=== PATIENT | male | born 1960 | race Caucasian/White ===

== ENCOUNTER 2017-09-23 12:57 | Emergency (ER) | payer BC ==
[~2017-09-23] VITALS: Ht 182.9 cm; Wt 94.8 kg
[~2017-09-23 12:57] MED LIST: ANAFRANIL25 MG ORAL; ATENOLOL100 MG ORAL; MULTIVITAMINS1 EAC2 ORAL; XARELTO10 MG ORAL
[2017-09-23] MEDS ORDERED: ATENOLOL50 MG ORAL (13:08)
[2017-09-23] MEDS ORDERED: ASPIRIN325 MG ORAL (13:08)
[2017-09-23] MEDS ORDERED: ZANTAC150 MG ORAL (13:08)
[2017-09-23 13:17] VITALS: BP 155/92
[2017-09-23] MEDS ORDERED: Carbamide Peroxide 6.5% Ot Sol 15ML RIGHT EAR STA (13:42)
[2017-09-23 13:56] VITALS: BP 146/65
[2017-09-23 14:00] VITALS: BP 143/82
[2017-09-23 14:09] LABS: BASOPHILS % (AUTO) 1.7 % (0.0-2.0); EOSINOPHILS % (AUTO) 2.5 % (0.0-3.0); HEMATOCRIT 47.8 % (42.0-52.0); HEMOGLOBIN 15.8 G/DL (14.2-18.0); LYMPHOCYTES % (AUTO) 33.2 % (20.0-45.0); MEAN CORPUSCULAR VOLUME 91 FL (80-99); NEUTROPHILS % (AUTO) 50.6 % (45.0-75.0); PLATELET COUNT 201 K/UL (150-450); RED BLOOD COUNT 5.23 M/UL (4.70-6.10); RED CELL DISTRIBUTION WIDTH 12.1 % (11.6-14.8); WHITE BLOOD COUNT 7.4 K/UL (4.8-10.8)
[2017-09-23 14:10] LABS: APPEARANCE,URINE CLEAR; BILIRUBIN, URINE NEGATIVE (NEGATIVE); COLOR,URINE PALE YELLOW; GLUCOSE, URINE (UA) NEGATIVE (NEGATIVE); KETONES,URINE NEGATIVE (NEGATIVE); LEUKOCYTE ESTERASE ,URINE NEGATIVE (NEGATIVE); NITRITE,URINE NEGATIVE (NEGATIVE); PH,URINE 6 (4.5-8.0); PROTEIN,URINE NEGATIVE (NEGATIVE); UROBILINOGEN,URINE NORMAL MG/DL (0.0-1.0)
[2017-09-23 14:36] LABS: ANION GAP 8 mmol/L (5-15); BLOOD UREA NITROGEN 14 mg/dL (7-18); CALCIUM 9.3 MG/DL (8.5-10.1); CARBON DIOXIDE 29 MMOL/L (21-32); CHLORIDE 102 MMOL/L (98-107); CREATININE 0.9 MG/DL (0.55-1.30); POTASSIUM 4.5 MMOL/L (3.5-5.1); SODIUM 139 MMOL/L (136-145)
--- NOTE | 2017-09-23 14:43 | Emergency Room Report ---
History of Present Illness General Chief Complaint: Dizziness Source: Patient Present Illness HPI The patient presents with10 - 14 days of increased weakness and feeling like he is about to pass out. He describes it as "dizziness" but denies having vertigo. They've been trying to clear out impacted wax of his right ear. In addition to that he recently traveled to [place] a week ago. He was feeling weak at that time and had headaches. He's had continued weakness ever since his return - some occipital discomfort. He's had dry mouth and some polyuria. At work today, he felt worse and felt he needed to go to ER. No unilateral weakness. He denies stress although how he feels makes him concerned. He rested and did not go skiing. The patient's on metoprolol. He takes his for palpitations. He had ablation for A fib and was transiently on Xarelto - not for years. He states he is "heart symptom conscious". Labs were performed last week. The nurse practitioner told him that his A1c was elevated and his blood sugar was also elevated. He had a maternal grandmother with diabetes. The patient denies chest pain or palpitations recently. His appetite has been adequate. He denies any stress. He does get anxious about how he is feeling. He was at work today and could barely get around. No NVD, dysuria, rashes. Facial asymmetry from breech and is chronic according to sig other. Denies chronic meds except for metoprolol and aspirin. Allergies: Coded Allergies: No Known Allergies (Unverified , 10/14/14) Patient History Past Medical History: see triage record Social History: Denies: smoking, alcohol use, drug use Social History Narrative marketing planner Reviewed Nursing Documentation: PMH: Agreed; PSxH: Agreed Nursing Documentation-PM Past Medical History: No History, Except For Hx Cardiac Problems: Yes - "IRREGULAR HEARTBEAT" Hx Cancer: No Hx Neurological Problems: No Review of Systems All Other Systems: negative except mentioned in HPI Physical Exam Vital Signs Date Time Temp Pulse Resp B/P (MAP) Pulse Ox O2 Delivery O2 Flow Rate FiO2 09/23/17 13:01 97.8 68 23 162/96 98 Room Air 97.9 Sp02 EP Interpretation: reviewed, normal General Appearance: well appearing, no apparent distress, GCS 15 Head: normocephalic Eyes: left eye other - slight laxity/asymmetry; bilateral eye normal inspection , bilateral eye PERRL, bilateral eye EOMI ENT: moist mucus membranes Neck: supple Respiratory: lungs clear, normal breath sounds Cardiovascular #1: regular rate, rhythm Cardiovascular #2: 2+ radial (R) Gastrointestinal: normal inspection, normal bowel sounds, non tender, no mass, non-distended Musculoskeletal: back normal, gait/station normal, normal range of motion Neurologic: alert, oriented x3, care rep III-XII nml as tested - see above, motor strength/tone normal, DTRs symmetric, sensory intact, cerebellar normal, normal gait, speech normal, other - facial assymmetry (state this is chronic) Psychiatric: anxious Skin: normal inspection, warm/dry Medical Decision Making Diagnostic Impression: Primary Impression: Weakness Additional Impressions: Borderline hyperglycemia Dizziness ER Course Patient presents with dizziness and dry mouth. Symptoms predate trip to altitude. Differential includes hyperglycemia, new-onset diabetes, diabetic ketoacidosis, rebound from altitude sickness, electrolyte imbalance, dehydration , thyroid abnormality, anemia, anxiety, vasculitis, arrhythmia, multiple sclerosis amongst others. Evaluation will be with EKG, chest x-ray and CT scan with labs. The patient will receive gentle IV hydration. Orthostatics will be checked. Patient is afebrile and denies pain. Normal neurologic exam (except for chronic asymmetry of face). Cerumen not explain symptoms. Not orthostatic. EKG without injury. Labs with glucose 126, rest normal. R ear wax cleared. Slight improvement with IV hydration. No ectopy or arrhythmia. No medical emergency at this time. Discussed observation at home vs in hospital. They are electing to be observed at home. Ativan dose given here. Patient stable for outpatient observation and treatment. Laboratory Tests Test 09/23/17 13:30 09/23/17 13:50 White Blood Count 7.4 K/UL (4.8-10.8) Red Blood Count 5.23 M/UL (4.70-6.10) Hemoglobin 15.8 G/DL (14.2-18.0) Hematocrit 47.8 % (42.0-52.0) Mean Corpuscular Volume 91 FL (80-99) Mean Corpuscular Hemoglobin 30.2 PG (27.0-31.0) Mean Corpuscular Hemoglobin Concent 33.0 G/DL (32.0-36.0) Red Cell Distribution Width 12.1 % (11.6-14.8) Platelet Count 201 K/UL (150-450) Mean Platelet Volume 9.5 FL (6.5-10.1) Neutrophils (%) (Auto) 50.6 % (45.0-75.0) Lymphocytes (%) (Auto) 33.2 % (20.0-45.0) Monocytes (%) (Auto) 12.0 % (1.0-10.0) H Eosinophils (%) (Auto) 2.5 % (0.0-3.0) Basophils (%) (Auto) 1.7 % (0.0-2.0) Erythrocyte Sedimentation Rate 9 MM/HR (0-20) Prothrombin Time 10.5 SEC (9.30-11.50) Prothrombin Time INR 1.0 (0.9-1.1) PTT 25 SEC (23-33) Sodium Level 139 MMOL/L (136-145) Potassium Level 4.5 MMOL/L (3.5-5.1) Chloride Level 102 MMOL/L (98-107) Carbon Dioxide Level 29 MMOL/L (21-32) Anion Gap 8 mmol/L (5-15) Blood Urea Nitrogen 14 mg/dL (7-18) Creatinine 0.9 MG/DL (0.55-1.30) Estimate Glomerular Filtration Rate > 60 mL/min (>60) Glucose Level 126 MG/DL (74-106) H Calcium Level 9.3 MG/DL (8.5-10.1) Total Bilirubin 0.6 MG/DL (0.2-1.0) Aspartate Amino Transferase (AST) 36 U/L (15-37) Alanine Aminotransferase (ALT) 75 U/L (12-78) Alkaline Phosphatase 58 U/L (46-116) Total Creatine Kinase 116 U/L (26-308) Troponin I 0.000 ng/mL (0.000-0.056) Pro-B-Type Natriuretic Peptide 59 pg/mL (0-125) Total Protein 7.8 G/DL (6.4-8.2) Albumin 4.1 G/DL (3.4-5.0) Globulin 3.7 g/dL Albumin/Globulin Ratio 1.1 (1.0-2.7) Thyroid Stimulating Hormone (TSH) 2.076 uiU/mL (0.358-3.740) Urine Color Pale yellow Urine Appearance Clear Urine pH 6 (4.5-8.0) Urine Specific [place] 1.010 (1.005-1.035) Urine Protein Negative (NEGATIVE) Urine Glucose (UA) Negative (NEGATIVE) Urine Ketones Negative (NEGATIVE) Urine Occult Blood Negative (NEGATIVE) Urine Nitrite Negative (NEGATIVE) Urine Bilirubin Negative (NEGATIVE) Urine Urobilinogen Normal MG/DL (0.0-1.0) Urine Leukocyte Esterase Negative (NEGATIVE) Urine Opiates Screen Negative (NEGATIVE) Urine Barbiturates Screen Negative (NEGATIVE) Phencyclidine (PCP) Screen Negative (NEGATIVE) Urine Amphetamines Screen Negative (NEGATIVE) Urine Benzodiazepines Screen Negative (NEGATIVE) Urine Cocaine Screen Negative (NEGATIVE) Urine Marijuana (THC) Screen Negative (NEGATIVE) EKG Diagnostic Results Rate: normal Rhythm: NSR ST Segments: no acute changes Rhythm Strip Diag. Results EP Interpretation: yes Rhythm: NSR, no PVC's, no ectopy Chest X-Ray Diagnostic Results Chest X-Ray Diagnostic Results : Chest X-Ray Ordered: Yes # of Views/Limited/Complete: 1 View Indication: Other EP Interpretation: Yes Interpretation: no consolidation, no effusion, no pneumothorax, no acute cardiopulmonary disease Impression: No acute disease Electronically Signed by: Augusto Choudhury MD CT/MRI/US Diagnostic Results CT/MRI/US Diagnostic Results : Imaging Test Ordered: head Impression occipital hygroma noted by me. Other minute calcifications noted by me, but read as normal by radiologist. Last Vital Signs Date Time Temp Pulse Resp B/P (MAP) Pulse Ox O2 Delivery O2 Flow Rate FiO2 09/23/17 16:38 88 20 138/80 98 Room Air 09/23/17 13:17 98.3 98.3 Status: improved Disposition: HOME, SELF-CARE Condition: Improved Scripts Lorazepam* (ATIVAN*) 0.5 Mg Tablet 0.5 MG ORAL THREE TIMES A DAY PRN for dizziness, #4 TAB Prov: Augusto Choudhury M.D. 09/23/17 Augusto Choudhury M.D. Sep 23, 2017 14:43
[2017-09-23 14:48] LABS: ALANINE AMINOTRANSFERASE 75 U/L (12-78); ALBUMIN 4.1 G/DL (3.4-5.0); ALBUMIN/GLOBULIN RATIO 1.1 (1.0-2.7); ALKALINE PHOSPHATASE 58 U/L (46-116); ASPARTATE AMINO TRANSFERASE 36 U/L (15-37); BILIRUBIN,TOTAL 0.6 MG/DL (0.2-1.0); CREATINE KINASE 116 U/L (26-308)
[2017-09-23 15:07] VITALS: BP 130/79
[2017-09-23] MEDS ORDERED: ATIVAN0.5 MG ORAL (16:22)
[2017-09-23] MEDS ORDERED: LORazepam 0.5mg tab ORAL ONE (16:30)
[2017-09-23 16:38] VITALS: BP 138/80
--- NOTE | 2017-09-24 10:11 | Diagnostic Imaging Report ---
Indication: Dizziness Technique: Continuous helical CT scanning of the head was performed utilizing automated exposure control without intravenous contrast material. Axial and coronal reconstructions were obtained. Comparison: None CT dose: Total DLP 1492 mGycm; CTDI vol 70.4 mGy Findings: There is no acute intracranial hemorrhage, mass effect or cortical edema. The ventricles, cisterns and sulci are within normal limits for age. The posterior fossa and fourth ventricle are unremarkable. Sellar and suprasellar regions are grossly unremarkable. Visualized mastoid air cells and paranasal sinuses are unremarkable. No focal lesions of the bony calvarium or soft tissues of the scalp are seen. Impression: No evidence of acute intracranial hemorrhage, mass effect or cortical edema. MRI may be obtained for more sensitive evaluation as clinically indicated. The CT scanner at [facility] is accredited by the [employer] and the scans are performed using protocols designed to limit radiation exposure to as low as reasonably achievable to attain images of sufficient resolution adequate for diagnostic evaluation.
--- NOTE | 2017-09-24 10:12 | Diagnostic Imaging Report ---
Indication: Chest pain Technique: XRAY Chest 1v Comparison: None Findings: Cardiomediastinal silhouette is within normal limits. There is no consolidation or pleural effusion. Degenerative changes of the spine are seen. Impression: No acute cardiopulmonary disease.
--- NOTE | 2017-09-25 19:19 | Cardiology Report ---
APPROVED REPORT EKG Measurement Heart [id number] Normal sinus rhythm Left axis deviation Abnormal ECG
== END 2017-09-23 16:39 | disposition home or self-care (01) ==
LOC: EMR 14:00
DX: R42 Dizziness and giddiness (principal); R53.1 Weakness; R73.03 Prediabetes; D18.1 Lymphangioma, any site; R07.9 Chest pain, unspecified
CPT/HCPCS: 36415; 70450; 71045; 80053; 80307; 81003; 82550; 83880; 84443; 84484; 85025; 85610; 85651; 85730; 93005; 96361; 96374; 99284